=== PATIENT | male | born 1940 | race Caucasian/White ===

== ENCOUNTER 2017-06-06 11:30 | Outpatient (RCR) | payer MEDICARE, OTHER, SELFPAY ==
--- NOTE | 2017-06-06 16:11 | HP.PTEVAL ---
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 Date of Evaluation: 06/06/17 Physical Therapist: Des Herrera PT, - Visit Plan Frequency: 2x /Week Duration: 4 Weeks Plan: high level balance activities ,visual deficit strategies,endurance - Subjective Subjective: This 77 y/o malec presents to physical therapy with left occiputal intraparenchyma hemmorrage. Patient developed BARTLETT during day lost vision and balance deficits ,thus patient May [address] SCAN admitted to [facility] then transferred [facility] for about 1week for further testing.Patient was in Rehab 4TH floor PT/OT/SPEECH then d/c May 31 to home. Patient uses cane for balance. Patient primary visual deficits right side.NO pain. No falls . Patient reports vision inptroving. Denies parathesia /tingling. Patient Independant with ADLS' ,bathing dressing,spouse does cooking.Denies parathesia/tingling. HOME SITUATION: [employer] [address]. VOVATION: retired. SOCAIL : - Objective POSTURE: WFL. GAIT: normal paula with cane 2 point. BALANCE: good-. MMT: 5/5 quad/hams/hip flexion/abd 4/5,ankle 5/5. FLEXABILITY: hams min loss. ASCEND/DESEND 12 STEPS with rail aternating. SLS unable-proprioception impaired. UNABLE TO HEEL TOE WALK. TANDEM STANCE MIN ASSIST. VISIUAL DEFICITS RIGHT SIDE POOR RIGHT SIDEC WORSE ,NO PERHERIAL VISION - Balance Scores Functional Gait Assessment Score: 23 % Disability: 23.3400 CATSIB Score (Max score 120 seconds): 215 - Goals Goal 1:: Independant with HEP Goal Time Frame: 2-4 Weeks Goal 2:: Ambulate with no device community distances improved gait pattern Goal Time Frame: 2-4 Weeks Goal 3:: Ptient improve visual deficits 50% using stragies for safety Goal Time Frame: 2-4 Weeks Goal 4:: Patient improve gait index CH DISABILITYscore Goal Time Frame: 2-4 Weeks Goal 5:: Patient be able to perform ADL'S and housework chores with no limiations Goal Time Frame: 2-4 Weeks - Rehabilitation Potential Physical Therapy Diagnosis: This patient had LEFT occipital hemmorage which affect visual dficits completely on right side along with high level balance impairments thus benifit from skilled PT Rehabilitation Potential: Good - Anticipated Interventions Patient/Client Instruction: Educate patient on: Condition, Plan of Care For the Purpose of:: To improve muscle performance and motor function, To improve ability to perform ADL's, To increase tolerance to activity/condition/position, To improve ability of physical actions for home/community/work/leisure, To improve endurance, To improve balance, To improve safety with gait, To assume or resume ADL's, To improve ability to perform tasks related to life management Therapeutic Exercise to Include: Strength training, Endurance training, Balance training, Coordination, Postural training, Gait and locomotor training Comment: high level balance activities For the Purpose of:: To improve muscle performance and motor function, To improve ability to perform ADL's, To increase tolerance to activity/condition/position, To improve performance and independence with ADL's, To improve ability of physical actions for home/community/work/leisure, To improve gait and locomotor functions, To increase flexibility/ROM, To improve endurance, To improve balance, To improve safety with gait, To improve health and function, To improve ability to perform tasks related to life management Thank you for the opportunity to evaluate your patient. For Medicare and Medicare HMO plans, please review the plan of care and approve it. It will need to be FAXED BACK to us at [phone] for Medicare purposes. Please let me know if there are questions or concerns regarding this plan of care. Physician Signature: Date:
--- NOTE | 2017-06-12 19:02 | HP.SP.AD ---
History - History Date of Eval: 06/12/17 Medical Diagnosis (from RX): debility secondary to left occipital hemorrhage Date of Onset of Diagnosis: 05/06/17 Previous speech therapy: Yes Results: Pt received ST tx at [facility] Rehab Unit. Pt was making progress on cognitive-linguistic goals of naming items in categories, memory strategies, and word finding strategies. Pt also completed the DANELLE and CLQT. Results of the CLQT from [facility] Rehab on 05/16/17-05/17/17 was as follows: Severity Ratings: Attention 88-Moderate, Memory 99-Moderate, Executive Function 8-Moderate, Language 23-Moderate, Visuospatial 34-Moderate, Clock Drawing 0-Severe, Composite Severity Rating 2.0-Moderate. 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 CLQT - CLQT CLQT Administered: Yes CLQT: Cognitive Linguistic Quick Test (CLQT) is a criterion - referenced assessment designed for adults between the ages of 18 and 89 with known or suspected neurological dysfuntions. The CLQT is to assess strength and weaknesses in five cognitive domains. Severity ratings are within normal limits, mild, moderate, severe deficits. The subtests are as follows: Date: 06/12/17 - Memory Memory: WNL - Language Language: WNL - Clock Drawing Severity Rating Clock Drawing Severity Rating: WNL - CLQT Comments Analysis Pt Memory, Language, and Clock Drawing are WNL. Assessment was not completed this date and will be continued next session. Per , pt is having difficulty with recall of information and understanding sequencing of daily tasks. Pt also concerned about money/math management, and ability to independently use computer for tasks. Plan - Plan Plan: ST tx is warranted to determine cognitive-linguistic deficits and treatment. Current goals are stated by and pt. - Frequency Frequency: 1x/Week Duration: 2 Months - Prognosis Prognosis: Good - Goal #1-5 Goal #1: Pt will utilize internal and external memory strategies to recall information read to or by pt to increase accuracy. Prompts: Min Accuracy: 80% # Sessions: 3/4 Goal #2: Pt will sequence at least 5 steps of functional tasks (cooking, money management, etc.)independently. Accuracy: 80% # Sessions: 3/4 Goal #3: Pt will complete additional cognitive-linguistic assessments as needed for goal addition or modification. G Codes - Type of Therapy Type of Therapy: Speech-Language Pathology - Spoken Language Comprehension Spoken Language Comprehension Current: CJ - 20-39% Spoken Language Comprehension Goal: CI - 1-19% - Therapy Cap Exclusion Therapy Cap Exclusion: Submit to Medicare Education - Patient has Indicated that the Following Identified Educational Needs: Hearing/Vision/Speech Impaired - Patient Instruction Patient Education: Treatment Plan, Goals Person Taught: Patient, Significant Other Teaching Method: Discussion Response to teaching: Verbalize understanding
--- NOTE | 2017-06-12 19:19 | HP.SP.AD_ITS ---
History - History Date of Eval: 06/12/17 Medical Diagnosis (from RX): debility secondary to left occipital hemorrhage Date of Onset of Diagnosis: 05/06/17 Previous speech therapy: Yes Results: Pt received ST tx at [facility]. Pt was making progress on cognitive-linguistic goals of naming items in categories, memory strategies, and word finding strategies. Pt also completed the DANELLE and CLQT. Results of the CLQT from [facility] Rehab on 05/16/17-05/17/17 was as follows: Severity Ratings: Attention 88-Moderate, Memory 99-Moderate, Executive Function 8-Moderate, Language 23-Moderate, Visuospatial 34-Moderate, Clock Drawing 0-Severe, Composite Severity Rating 2.0-Moderate. 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 CLQT - CLQT CLQT Administered: Yes CLQT: Cognitive Linguistic Quick Test (CLQT) is a criterion - referenced assessment designed for adults between the ages of 18 and 89 with known or suspected neurological dysfuntions. The CLQT is to assess strength and weaknesses in five cognitive domains. Severity ratings are within normal limits , mild, moderate, severe deficits. The subtests are as follows: Date: 06/12/17 - Memory Memory: WNL - Language Language: WNL - Clock Drawing Severity Rating Clock Drawing Severity Rating: WNL - CLQT Comments Analysis Pt Memory, Language, and Clock Drawing are WNL. Assessment was not completed this date and will be continued next session. Per , pt is having difficulty with recall of information and understanding sequencing of daily tasks. Pt also concerned about money/math management, and ability to independently use computer for tasks. Plan - Plan Plan: ST tx is warranted to determine cognitive-linguistic deficits and treatment. Current goals are stated by and pt. - Frequency Frequency: 1x/Week Duration: 2 Months - Prognosis Prognosis: Good - Goal #1-5 Goal #1: Pt will utilize internal and external memory strategies to recall information read to or by pt to increase accuracy. Prompts: Min Accuracy: 80% # Sessions: 3/4 Goal #2: Pt will sequence at least 5 steps of functional tasks (cooking, money management, etc.)independently. Accuracy: 80% # Sessions: 3/4 Goal #3: Pt will complete additional cognitive-linguistic assessments as needed for goal addition or modification. G Codes - Type of Therapy Type of Therapy: Speech-Language Pathology - Spoken Language Comprehension Spoken Language Comprehension Current: CJ - 20-39% Spoken Language Comprehension Goal: CI - 1-19% - Therapy Cap Exclusion Therapy Cap Exclusion: Submit to Medicare Education - Patient has Indicated that the Following Identified Educational Needs: Hearing/Vision/Speech Impaired - Patient Instruction Patient Education: Treatment Plan, Goals Person Taught: Patient, Significant Other Teaching Method: Discussion Response to teaching: Verbalize understanding
--- NOTE | 2017-07-12 12:01 | HP.PTDCSUM_ITS ---
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 Discharge Date: 07/12/17 Please see the following information for a summary of their discharge status. - Subjective Subjective: Doing good ..vision about the smme - Objective Objective/Function: POSTURE: WFL. GAIT: normal paula reciprocal gait. MMT: 4 /5 grossly. BALANCE: good dynamic balance - Goals Goal 1:: Independant with HEP Goal 2:: Ambulate with no device community distances improved gait pattern Goal Progress: Goal Met Goal 3:: Ptient improve visual deficits 50% using stragies for safety Goal Progress: Goal Met Goal 4:: Patient improve gait index CH DISABILITYscore Goal Progress: Goal Met Goal 5:: Patient be able to perform ADL'S and housework chores with no limiations Goal Progress: Goal Met - Plan Plan: D/C TO [facility] - D/C Information Discharge Comments: [facility] If there are questions or concerns regarding this patient's physical therapy, please feel free to call me at [phone]. Thank you for the referral of this patient. Sincerely, Des Herrera, PT,
--- NOTE | 2017-08-16 16:58 | HP.SP.DC_ITS ---
ST Discharge Summary - Discharged: Discharge: David Nichols is discharged from outpatient speech-language therapy effective 08/16/2017. participated in an initial evaluation followed by four additional treatment sessions focusing on mildly impaired cognitive- linguistic deficits. was making adequate progress but scheduled no more follow-up sessions with speech following discharge from other disciplines. Please reconsult as necessary.
== END 2017-07-12 19:00 | disposition home or self-care (01) ==
LOC: PT 14:55 → SP 06-12 13:30 → PT 06-19 12:30 → SP 06-28 13:30 → PT 06-29 11:30 → SP 07-03 14:00 → PT 07-05 11:30 → SP 07-10 13:30 → PT 07-12 11:30
PROVIDERS: Family Provider Family Medicine; PCP Family Medicine; Visit Provider Psychiatry & Neurology Neurology
DX: I69.118 Other symptoms and signs involving cognitive functions following nontraumatic intracerebral hemorrhage (principal); I69.198 Other sequelae of nontraumatic intracerebral hemorrhage; H53.8 Other visual disturbances; R53.83 Other fatigue
CPT/HCPCS: 92507 ×4; 92523; 97110 ×9; 97162; 97530; G8978; G8979; G8980; G9159; G9160

== ENCOUNTER 2017-07-19 13:21 | Outpatient (RCR) | payer MEDICARE, OTHER, SELFPAY | END 2017-07-19 19:00 | disposition home or self-care (01) | LOC: OT 13:21 | PROVIDERS: Family Provider Family Medicine; PCP Family Medicine; Visit Provider Psychiatry & Neurology Neurology | DX: I61.8 Other nontraumatic intracerebral hemorrhage (principal); R53.81 Other malaise ==

== ENCOUNTER → 2017-10-30 20:08 | Outpatient (CLI) | payer MEDICARE, OTHER, SELFPAY | PROVIDERS: Family Provider Family Medicine; PCP Family Medicine; Visit Provider Nurse Practitioner Acute Care | DX: G47.33 Obstructive sleep apnea (adult) (pediatric) (principal) | CPT/HCPCS: 95810 ==

== ENCOUNTER → 2017-11-22 20:15 | Outpatient (CLI) | payer MEDICARE, OTHER, SELFPAY | PROVIDERS: Family Provider Family Medicine; PCP Family Medicine; Visit Provider Nurse Practitioner Acute Care | DX: G47.33 Obstructive sleep apnea (adult) (pediatric) (principal) | CPT/HCPCS: 95811 ==

== ENCOUNTER 2017-11-28 13:00 | Outpatient (RCR) | payer MEDICARE, OTHER, SELFPAY ==
--- NOTE | 2017-11-08 14:43 | HP.SP.AD_ITS ---
History - History Date of Eval: 11/07/17 Previous speech therapy: Yes Other Relevant Medical History/Diagnoses/Surgery: Patient is currently not driving. 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 Smoking Status: Former smoker Hx Smoking: Yes Hx Tobacco Use: No Hx Smoking Exposure: No - Pain Is pain an issue with your current prescribed condition?: No - Personal Education History: Some college. Occupation: Retired Right Hearing Abillity: Use of Hearing Aid Left Hearing Abillity: Use of Hearing Aid Patient Allergies - Allergies Allergies No Known Allergies Allergy (Verified 05/14/17 18:17) Subjective Cog/Ling/Com - Subjective Cognitive/Linguistic/Communication: Patient reported that he has short term memory deficits as well as a slower processing. He also reported difficulty with math/numbers/banking. He is currently not driving. Objective Cog/Ling/Com - Test Administered Gkhmyagyo-Shaymvlcmo-Aaklkdiamfbsw Assessment Administered: Yes Ogtbhwuoj-Vzrbfxujda-Crulfewjregto Assessment: Cognitive ? Linguistic skills were evaluated using patient/family interview, skilled observation and informal evaluation through tasks completed by the patient. - Conversational Tasks Conversational Tasks: WFL Other Impressions - Comments Comments -: 's reported that he has moments of confusion but not frequently ( only a few per month). An example of this is that he was insistent his appointment was at 1:00 after taking a reminder call for a 11:00 appointment. He is not completing his checkbook without help and but he is able to hand sosa/ change per his . She stated that he continues to have moments of confusion a few times per month where he will go into a wrong room to file something or appear to not understand how to do a task. Memory is of concern to the patient and he currently is not using memory strategies. Plan - Plan Plan: Speech therapy is warranted for cognitive deficits. - Recommendations Treatment Warranted: Yes - Frequency Frequency: 1x/Week Duration: 6 Weeks Visits in this POC: 6 - Prognosis Prognosis: Fair - Goals that are Established: Determination:: Goals will be added/modified as deemed necessary and appropriate. Therapy will be discontinued when results of re-evaluation indicate therapy is no longer needed or lack of progress has been documented. - Goal #1-5 Goal #1: will complete further evaluation for cognitive deficits. Goal #2: Further evalution of numerical processing including checkbook balancing and writing. Goal #3: will use recall strategies on 3/5 trials in therapy and also reported using a calendar at home consistently. Education - Patient Instruction Patient Education: Diagnosis, Treatment Plan, Goals Person Taught: Patient, Family Teaching Method: Discussion Response to teaching: Verbalize understanding
--- NOTE | 2017-12-06 15:39 | HP.SP.DC ---
ST Discharge Summary - Discharged: Discharge: David Nichols is discharged from [facility] as of December 06, 2017. He was evaluated on November 07, 2017 with short term therapy recommended. His goals focused on evaluation of cognitive skills as well as writing skills and using recall strategies. Two sessions were completed. He exhibited within normal limits cognitive skills. He was able to complete a checkbook register with no deficits when using a calculator. His last goal focused on using recall strategies for memory. He was able to independently use a calendar as well as his phone as strategies. No further therapy is warranted and he is discharged at this time. A copy of this discharge summary will be sent to his referring physician.
== END 2017-11-28 19:00 | disposition home or self-care (01) ==
LOC: SP 13:00
PROVIDERS: Family Provider Family Medicine; PCP Family Medicine; Visit Provider Nurse Practitioner Acute Care
DX: I61.9 Nontraumatic intracerebral hemorrhage, unspecified (principal); G31.84 Mild cognitive impairment of uncertain or unknown etiology; I69.928 Other speech and language deficits following unspecified cerebrovascular disease
CPT/HCPCS: 92507; 92523; G9174; G9175; G9176

== ENCOUNTER → 2017-12-20 11:26 | Outpatient (CLI) | payer MEDICARE, OTHER, SELFPAY ==
--- NOTE | 2017-12-20 16:52 | STRESSREP ---
Stress Test Report Exercise stress test. 77-year-old man with a history of chest pain. Stress protocol: The patient exercised according to regular Yovany protocol for total duration of 4 minutes the maximum heart rate attained was 134 bpm which was 93% of maximum predicted heart rate the maximum workload attained was 5.8 metabolic equivalents. At rest there were no ST or T-wave changes noted suggest ischemia peak exercise upsloping ST changes only were noted to we did not meet the criteria for ischemia. The resting blood pressure is 130/88 mmHg and the peak blood pressure was 218/100 mmHg. Rate pressure product was 27,600 test was terminated due to leg fatigue. Exercise stress test with no evidence of ischemia noted at a moderate workload. Hypertensive response to exercise. The low to work moderate workload may affect sensitivity for detection of ischemia.
== END ==
PROVIDERS: Family Provider Family Medicine; PCP Family Medicine
DX: I48.0 Paroxysmal atrial fibrillation (principal); R94.31 Abnormal electrocardiogram [ECG] [EKG]; I10 Essential (primary) hypertension
CPT/HCPCS: 93017

== ENCOUNTER → 2017-12-28 09:00 | Outpatient (CLI) | payer MEDICARE, OTHER, SELFPAY | PROVIDERS: Family Provider Family Medicine; PCP Family Medicine; Visit Provider Nurse Practitioner Acute Care | DX: G47.33 Obstructive sleep apnea (adult) (pediatric) (principal) | CPT/HCPCS: 98960; G0463 ==

== ENCOUNTER → 2018-03-07 10:50 | Outpatient (CLI) | payer MEDICARE, OTHER, SELFPAY ==
[2018-03-07 12:06] LABS: BUN 13 mg/dL (7-18); EST Glomerular Filtration Rate 77 mL/min (>60); Est Glom Filt Rate - Afr Amer 93 mL/min (>60); PSA,Total- Diagnostic 7.07 ng/mL (0.0-4.0); Thyroid Stim Hormone (TSH) 6.55 uIU/mL (0.358-3.74)
== END ==
PROVIDERS: Family Provider Family Medicine; PCP Family Medicine
DX: R97.20 Elevated prostate specific antigen [PSA] (principal); Z79.899 Other long term (current) drug therapy; I62.9 Nontraumatic intracranial hemorrhage, unspecified; Z51.81 Encounter for therapeutic drug level monitoring
CPT/HCPCS: 36415; 82565; 84153; 84443; 84520

== ENCOUNTER → 2018-03-13 09:58 | Outpatient (CLI) | payer MEDICARE, OTHER, SELFPAY ==
--- NOTE | 2018-03-13 11:08 | MRI_ITS ---
STUDY: MRI BRAIN WITH AND WITHOUT CONTRAST REASON FOR EXAM: Male, 77 years old. Acute intracranial hemorrhage 04/2017. TECHNIQUE: Standardized multiplanar fat and water weighted pulse sequences were obtained. 10 ml of Gadavist contrast material was administered intravenously for the contrast portion of the examination. COMPARISON: CT head without contrast 05/06/2017. MRI of the brain without contrast 05/23/2017. 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 This has undergone cystic change with small laminar necrosis. No contrast enhancement after IV contrast administration of this infarct. There is ex vacuo dilatation of the occipital horn of the left lateral ventricle. Subcortical and periventricular white matter T2 FLAIR hyperintensity foci are chronic white matter ischemic changes. May represent previously and are unchanged. Normal bilateral basal ganglia. Normal thalami. There is no extra-axial fluid accumulation. Normal flow voids within the major intracranial circulation suggesting patency by spin echo criteria. Normal venous enhancement. There is no enhancing intra-axial or extra-axial abnormality. Normal sella turcica, pituitary gland, infundibular stalk, optic chiasm and hypothalamus. Normal tectal plate and pineal gland. Normal midbrain, sallie and medulla. Normal cerebellum. Normal basal cisterns. Normal bilateral temporal bones. Normal bilateral internal auditory canals. No demonstrated orbital abnormality, within the constraints of a routine brain study. Normal visualized paranasal sinuses. Normal calvarium and skull base. Normal visualized soft tissue structures. Normal visualized upper cervical spine. MRI/Brain W/WO Contrast IMPRESSION: 1. 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 They have undergone cystic change with focal atrophy and ex vacuo dilatation of the occipital horn of the left lateral ventricle. 2. No MRI evidence of acute or subacute ischemic infarct. 3. Chronic white matter ischemic changes in both cerebral hemispheres are unchanged. Electronically Signed: Hamilton Proctor MD at 9:43 EDT , Service support ,
--- NOTE | 2018-03-13 12:38 | PFT ---
INTRODUCTION: The patient is a 77-year-old male currently under the care of Dr. Guzmán that presents for pulmonary function testing secondary to a diagnosis of high risk medication use. Respiratory therapy reports good patient effort. Bronchodilators were used during testing. INTERPRETATION: Forced expiration spirometry demonstrates no evidence of a large airways obstructive ventilatory defect. There was no significant response to aerosolized bronchodilators, based upon strict ATS criteria. Spirograms are of good quality and plateau normally. Body plethysmography was performed and reveals a decreased TLC to 5.67 L, 82% of predicted, indicative of a mild restrictive ventilatory impairment. The remainder of the lung volumes are symmetrically reduced. Diffusing capacity by single breath CO is within normal limits at 85% of predicted. IMPRESSION: These pulmonary function studies demonstrate the presence of an isolated mild restrictive ventilatory impairment with preserved diffusing capacity. There are no previous pulmonary function studies available for comparison.
== END ==
PROVIDERS: Family Provider Family Medicine; PCP Family Medicine
DX: I62.9 Nontraumatic intracranial hemorrhage, unspecified (principal)
CPT/HCPCS: 70553; 94060; 94726; 94729; A9585